=== PATIENT | female | born 1965 | race African-American/Black ===

== ENCOUNTER 2019-02-01 10:19 | Emergency (ER) | payer OTHER ==
[~2019-02-01] VITALS: Ht 167.6 cm; Wt 86.0 kg
[2019-02-01 11:28] VITALS: BP 171/88
[2019-02-01] MEDS ORDERED: LIDOCAINE HCL 1% 20ML VIAL (Pyxis) INJ INFIL ONE (11:45)
[2019-02-01] MEDS ORDERED: BACITRACIN ZINC OINT UDPKT TOP ONE (11:45)
[2019-02-01] MEDS ORDERED: BACITRACIN 15GM TUBE TOP NR (12:00)
== END 2019-02-01 12:32 | disposition home or self-care (01) ==
LOC: ER 10:19
DX: S91.202A Unspecified open wound of left great toe with damage to nail, initial encounter (principal); W22.8XXA Striking against or struck by other objects, initial encounter; Y93.89 Activity, other specified; Y92.018 Other place in single-family (private) house as the place of occurrence of the external cause; R03.0 Elevated blood-pressure reading, without diagnosis of hypertension
CPT/HCPCS: 11730; 99283; J3490